=== PATIENT | female | born 1965 | race Native Hawaiian/Other Pacific Islander ===

== ENCOUNTER 2017-08-19 18:26 | Emergency (ER) | payer SELFPAY ==
[~2017-08-19] VITALS: Ht 165.1 cm; Wt 94.0 kg
[2017-08-19 18:59] VITALS: BP 125/78
--- NOTE | 2017-08-19 19:02 | NUR ---
PT AMBULATES BACK TO THE LOBBY
--- NOTE | 2017-08-19 21:05 | NUR ---
PT TAKEN TO CHAIR B
[2017-08-19] MEDS ORDERED: TETRACAINE HCL/PF 0.5% OPTH 4 ML BTL OP ONE (22:10)
[2017-08-19] MEDS ORDERED: FLUORESCEIN OPTH STRIP 0.6 MG ONE (22:16)
--- NOTE | 2017-08-19 22:21 | NUR ---
52Y/F PT. PRESENST TO ED WITH C/O RT EYE PAIN SINCE YESTERDAY WITH WHITE DISCHARGE TODAY; PER PT MIGHT BE D/T HER CONTACTS; DENIES INJURY, BLURRY VISION. AAO X4, AMBULATORY WITH STEADY GAIT. RT. EYE REDNESS AND PAIN 10/03. VSS, ER MD MADE AWARE OF PT. STATUS.
--- NOTE | 2017-08-19 22:51 | NUR ---
Patient discharged with v/s stable. Written and verbal after care instructions given and explained. Patient alert, oriented and verbalized understanding of instructions. Ambulatory with steady gait. All questions addressed prior to discharge. ID band removed. Patient advised to follow up with PMD. Rx of CIPRO 0.3% OP ISIS given. Patient educated on indication of medication including possible reaction and side effects. Opportunity to ask questions provided and answered.
[2017-08-19 22:53] VITALS: BP 119/62
== END 2017-08-19 22:51 | disposition home or self-care (01) ==
LOC: MED 18:26
DX: S05.01XA Injury of conjunctiva and corneal abrasion without foreign body, right eye, initial encounter (principal); H10.9 Unspecified conjunctivitis; X58.XXXA Exposure to other specified factors, initial encounter; Y93.89 Activity, other specified; Y92.89 Other specified places as the place of occurrence of the external cause; Y99.8 Other external cause status
CPT/HCPCS: 99283

== ENCOUNTER 2021-10-21 21:58 | Emergency (ER) | payer BC ==
[~2021-10-21] VITALS: Ht 162.6 cm; Wt 99.8 kg
--- NOTE | 2021-10-21 22:08 | NUR ---
Dr. Menendez examining patient.
[2021-10-21 22:33] VITALS: BP 134/72
[2021-10-21 22:40] LABS: BASOPHILS % (AUTO) 0.2 % (0.0-2.0); EOSINOPHILS % (AUTO) 0.2 % (0.0-4.0); HEMATOCRIT 43.8 % (36-48); HEMOGLOBIN 14.6 g/dL (12.0-16.0); LYMPHOCYTES # (AUTO) 1.9 K/uL (2.5-16.5); LYMPHOCYTES % (AUTO) 12.7 % (20.5-51.1); MEAN CORPUSCULAR HEMOGLOBIN 29 pg (27-31); MEAN CORPUSCULAR HGB CONC 33 g/dL (33-37); MEAN CORPUSCULAR VOLUME 86.3 fL (80-94); MONOCYTES # (AUTO) 1.1 K/uL (0.8-1.0); MONOCYTES % (AUTO) 7.1 % (1.7-9.3); NEUTROPHILS # (AUTO) 12.3 K/uL (1.8-7.7); NEUTROPHILS % (AUTO) 79.8 % (42.2-75.2); PLATELET COUNT (AUTO) 266 K/uL (140-450); RED BLOOD CELL COUNT(AUTO) 5.08 MIL/uL (4.20-5.40); RED CELL DISTRIBUTION WIDTH 14.2 % (11.6-13.7); WHITE BLOOD COUNT (AUTO) 15.4 K/uL (4.8-10.8)
--- NOTE | 2021-10-21 22:40 | NUR ---
LIZA BELLAMY. TAKEN TO CHAIR
[2021-10-21 22:59] LABS: ALBUMIN 3.3 g/dL (3.4-5.0); ANION GAP 10.8 (8-16); CARBON DIOXIDE 27.2 mmol/L (21-32); CREATININE 0.9 mg/dL (0.6-1.3); TOTAL BILIRUBIN 0.6 mg/dL (0.0-1.0)
--- NOTE | 2021-10-21 22:59 | NUR ---
PT MOVED TO BED 10 Addendum: 10/21/21 at 2259 by JONG PT TAKEN TO BED 3
[2021-10-21] MEDS ORDERED: ONDANSETRON 4 MG/2 ML VIAL IVP ONE (23:00)
[2021-10-21] MEDS ORDERED: MORPHINE SULFATE 4 MG/ML SYR IVP ONE (23:00)
[2021-10-21] MEDS ORDERED: PIPERACILLIN/TAZOBACTAM 3.375 GM in DEXTROSE 5% 50 ML IV ONE (23:00)
--- NOTE | 2021-10-21 23:15 | NUR ---
RECEIVED IN BED 3 . PT WAS BIBA WITH C/O RLQ PAIN AND (+) REBOUND TENDERNESS
--- NOTE | 2021-10-21 23:47 | NUR ---
SAJI SWAB OBTAINED AND SNT TO LAB
[2021-10-21] MEDS ORDERED: PIPERACILLIN/TAZOBACTAM 3.375 GM VIAL IV ONE (23:52)
[2021-10-22 02:25] VITALS: BP 110/59
--- NOTE | 2021-10-22 02:25 | NUR ---
REPORT CALLED TO OBDULIA DURBIN AT [facility]
--- NOTE | 2021-10-22 02:30 | NUR ---
TRANSFERED TO [facility] VIA [facility]. CHART COPIED AND SENT
== END 2021-10-22 02:30 | disposition short-term general hospital (02) ==
LOC: MED 21:58
DX: K35.80 Unspecified acute appendicitis (principal); Z90.710 Acquired absence of both cervix and uterus; Z85.9 Personal history of malignant neoplasm, unspecified
CPT/HCPCS: 36415; 74176; 80053; 82150; 83690; 85025; 87040; 96365; 96375; 99284; J2270; J2405; J2543

== ENCOUNTER 2022-10-31 20:42 | Emergency (ER) | payer BC ==
[~2022-10-31] VITALS: Ht 162.6 cm; Wt 97.5 kg
--- NOTE | 2022-10-31 20:44 | NUR ---
MIA BIRDS TO BED #4
[2022-10-31 20:48] VITALS: BP 142/78
--- NOTE | 2022-10-31 20:58 | NUR ---
RECEIVED IN BED 4, BIBA WITH C/O RIGHT LOWER AND RIGHT UPPER QUADRANT ABDOMINAL PAIN. PT WITH POSSIBE H/O GALLSTONES. PT STAITES THAT HER PAIN STARTED THIS AM AND SHE TOOK TUMS WITHOUT RELIEF
[2022-10-31] MEDS ORDERED: NACL 0.9% 1,000 ML IV SCH (21:10)
[2022-10-31] MEDS ORDERED: MORPHINE SULFATE 4 MG/ML SYR IVP ONE (21:10)
[2022-10-31] MEDS ORDERED: ONDANSETRON 4 MG/2 ML VIAL IVP ONE (21:10)
[2022-10-31 21:41] LABS: BASOPHILS % (AUTO) 0.3 % (0.0-2.0); EOSINOPHILS # (AUTO) 0.2 K/uL (0-0.4); EOSINOPHILS % (AUTO) 1.6 % (0.0-4.0); HEMATOCRIT 42.6 % (36-48); HEMOGLOBIN 14.3 g/dL (12.0-16.0); LYMPHOCYTES # (AUTO) 1.9 K/uL (2.5-16.5); LYMPHOCYTES % (AUTO) 19.7 % (20.5-51.1); MEAN CORPUSCULAR HEMOGLOBIN 29 pg (27-31); MEAN CORPUSCULAR HGB CONC 34 g/dL (33-37); MEAN CORPUSCULAR VOLUME 86.9 fL (80-94); MONOCYTES # (AUTO) 0.8 K/uL (0.8-1.0); NEUTROPHILS # (AUTO) 6.8 K/uL (1.8-7.7); NEUTROPHILS % (AUTO) 70.4 % (42.2-75.2); PLATELET COUNT (AUTO) 264 K/uL (140-450); WHITE BLOOD COUNT (AUTO) 9.6 K/uL (4.8-10.8)
[2022-10-31 22:01] LABS: ALBUMIN 2.9 g/dL (3.4-5.0); ANION GAP 12.3 (8-16); CARBON DIOXIDE 26.9 mmol/L (21-32); CREATININE 0.8 mg/dL (0.6-1.3); POTASSIUM 4.2 mmol/L (3.5-5.1); TOTAL BILIRUBIN 0.1 mg/dL (0.0-1.0)
--- NOTE | 2022-10-31 23:37 | NUR ---
UNABLE TO PROVIDE UA AT THIS TIME. CUP GIVEN TO PT WHO EARLIER AMBULATED TO BR AND DID NOT OBTAIN UA
[2022-11-01 00:19] LABS: APPEARANCE,URINE CLEAR (CLEAR); BILIRUBIN,URINE NEGATIVE (NEGATIVE); BLOOD, URINE NEGATIVE (NEGATIVE); COLOR,URINE YELLOW (YELLOW); LEUKOCYTE ESTERASE ,URINE NEGATIVE (NEGATIVE); NITRITE, URINE POSITIVE (NEGATIVE); UGLUCOSE NEGATIVE (NEGATIVE)
[2022-11-01 00:23] LABS: RBC,URINE 0-5 /HPF (0-5)
--- NOTE | 2022-11-01 00:52 | NUR ---
dr watt at bedside for re-exam
[2022-11-01] MEDS ORDERED: CEPH-588 PO (00:58)
[2022-11-01] MEDS ORDERED: NAPR-54 PO (00:58)
[2022-11-01 01:05] VITALS: BP 142/78
--- NOTE | 2022-11-01 01:05 | NUR ---
Patient discharged with v/s stable. Written and verbal after care instructions given and explained. Patient alert, oriented and verbalized understanding of instructions. Ambulatory with steady gait. All questions addressed prior to discharge. ID band removed. Patient advised to follow up with PMD. Rx of KEFLEX AND NAPROSYN given. Patient educated on indication of medication including possible reaction and side effects. Opportunity to ask questions provided and answered.
== END 2022-11-01 01:05 | disposition home or self-care (01) ==
LOC: MED 20:42
DX: N30.00 Acute cystitis without hematuria (principal); R10.11 Right upper quadrant pain; Z79.899 Other long term (current) drug therapy; Z90.49 Acquired absence of other specified parts of digestive tract; Z90.710 Acquired absence of both cervix and uterus
CPT/HCPCS: 36415; 74176; 76705; 80053; 81001; 83690; 85025; 87086; 96361; 96374; 96375; 99285; J2270; J2405; J7030; Q0092

== ENCOUNTER 2023-10-25 17:19 | Emergency (ER) | payer BC ==
[~2023-10-25] VITALS: Ht 162.6 cm; Wt 102.5 kg
[~2023-10-25 17:19] MED LIST: CEPH-588 PO; NAPR-337 PO
[2023-10-25 17:23] VITALS: BP 117/52; PULSE 93; RESP 18; TEMP 96.9; O2SAT 92
[2023-10-25] MEDS: NACL 0.9% 1,000 ML IV ONE (18:45)
[2023-10-25] MEDS: METOCLOPRAMIDE 10 MG/2 ML INJ VIAL IVP ONE (19:11)
[2023-10-25] MEDS: KETOROLAC 30 MG/ML VIAL IVP ONE (19:13)
[2023-10-25 19:36] VITALS: BP 120/54; PULSE 94; RESP 18; TEMP 97.5
[2023-10-25 19:55] VITALS: O2SAT 95
== END 2023-10-25 19:55 | disposition left against medical advice (07) ==
LOC: MED 17:19
DX: R51.9 Headache, unspecified (principal); Z79.899 Other long term (current) drug therapy
CPT/HCPCS: 70450; 96361; 96374; 96375; 99285; J1885; J2765; J7030